=== PATIENT | male | born 1940 | race Hispanic/Latino ===

== ENCOUNTER 2017-08-10 00:08 | Emergency (ER) | payer MEDICARE, MEDICAID ==
[2017-08-10] MEDS ORDERED: Acetaminophen 500 MG TAB ONE (02:32)
--- NOTE | 2017-08-10 07:43 | CT ---
PRELIMINARY REPORT/[facility]/EMERGENCY AFTER HOURS PROCEDURE: EXAM: CT Head Without Intravenous Contrast CLINICAL HISTORY: 77 years old, male; Injury or trauma; Fall; Initial encounter; Abrasion; Not specified; Patient HX: [age] yo m [place] ed from [place] S/P fall. Pt states that he was in his wheelchair, fell backwards, and hit back of head on floor. Denies loc. Pt reports pain to back of head initially but pain has now resolved. Al so reports neck pain. Denies n/v. TECHNIQUE: Axial computed tomography images of the head/brain without intravenous contrast. COMPARISON: No relevant prior studies available. FINDINGS: Brain: There is no evidence of intracranial bleed, mass or shift of midline structures. Diffuse periv entricular, deep and subcortical white matter hypodensity is seen most consistent with small vessel i schemic change. Atherosclerotic calcifications are seen within the intracranial vessels. Ventricles: The ventricles and subarachnoid cisterns demonstrate changes consistent with moderate radha bal cerebral volume loss. Paranasal sinuses: The paranasal sinuses are clear. Mastoids: The mastoid air cells are clear. Osseous structures: The osseous structures are unremarkable. Orbits: The orbits are unremarkable. IMPRESSION: Moderate global cerebral volume loss with diffuse deep, subcortical and periventricular white matter hypodensity most consistent with age related ischemic white matter changes. No evidence of acute intracranial hemorrhage. Thank you for allowing us to participate in the care of your patient. Dictated and Authenticated by: Hilario Aquino MD 08/10/2017 1:31 AM Central Time ([place] & [place]) FINAL REPORT CT BRAIN WITHOUT CONTRAST: I agree with the preliminary report given by Dr. Hilario Aquino of [facility]. Comparison is made with the exam of 12/03/2016. No CT evidence of acute intracranial process is seen . POS: [facility]
--- NOTE | 2017-08-10 08:04 | CT ---
PRELIMINARY REPORT/[facility]/EMERGENCY AFTER HOURS PROCEDURE: EXAM: CT Cervical Spine Without Intravenous Contrast CLINICAL HISTORY: 77 years old, male; Injury or trauma; Fall; Initial encounter; Abrasion; Patient HX: 77 yo m presents [place] ed from [place] S/[place]. Pt states that he was in his wheelchair, fell backwards, and hit back of hea d on floor. Denies loc. Pt reports pain to back of head initially but pain has now resolved. Also rep orts neck pain. Denies n/v. TECHNIQUE: Axial computed tomography images of the cervical spine without intravenous contrast. Coronal and sagittal reformatted images were created and reviewed. COMPARISON: No relevant prior studies available. FINDINGS: Osseous structures: There is no evidence of acute fracture or spondylolisthesis. The cervical alignment is normal. The vertebral body heights are well-maintained. Mild to moderate multilevel degenerative facet change The osseous skull base is normal. Intervertebral discs: Severe C6/C7 degenerative disc change There is no evidence of significant central canal stenosis. Soft tissues: The soft tissues of the neck and paraspinal musculature are unremarkable. Visualized lung apices are unremarkable IMPRESSION: No acute fracture. Severe C6/C7 degenerative disc change with severe RIGHT neural foraminal stenosis Thank you for allowing us to participate in the care of your patient. Dictated and Authenticated by: Hilario Aquino MD 08/10/2017 1:34 AM Central Time ([place] & [place]) FINAL REPORT CT CERVICAL SPINE WITH CORONAL AND SAGITTAL REFORMATIONS: I agree with the preliminary report given by Dr. Hilario Aquino of [facility]. POS: [facility]
== END 2017-08-10 03:10 ==
LOC: ERS 00:08
DX: S09.90XA Unspecified injury of head, initial encounter (principal); S16.1XXA Strain of muscle, fascia and tendon at neck level, initial encounter; E11.9 Type 2 diabetes mellitus without complications; E78.5 Hyperlipidemia, unspecified; F41.9 Anxiety disorder, unspecified; F31.9 Bipolar disorder, unspecified; W05.0XXA Fall from non-moving wheelchair, initial encounter
CPT/HCPCS: 70450; 72125

== ENCOUNTER 2017-09-20 02:46 | Emergency (ER) | payer MEDICARE, MEDICAID ==
[2017-09-20 03:42] LABS: #Basophils 0.1 thou/uL (0.0-0.2); #Eosinphils 0.2 thou/uL (0.0-0.7); #Lymphocytes 1.5 thou/uL (1.20-3.40); #Monocytes 0.4 thou/uL (0.11-0.59); %Eosinophils 4.1 % (0.0-10.0); %Lymphocytes 29.1 % (21.0-51.0); %Monocytes 8.4 % (0.0-10.0); %Neutrophils 57.5 % (42.0-75.0); Hemoglobin 16.9 g/dL (14.0-18.0); Mean Corpuscular HGB CONC 33.1 g/dL (32.0-36.0); Mean Corpuscular Hemoglobin 29.7 pg (27.0-31.0); Mean Corpuscular Volume 89.7 fl (80.0-94.0); Mean Platelet Volume 7.6 fL (7.4-10.4); Platelet Count 138 thou/uL (130-400); RBC Distribution Width 12.7 % (11.5-14.5); Red Blood Cell (RBC) Count 5.69 mill/uL (4.70-6.10); White Blood Cell (WBC) Count 5.3 thou/uL (4.8-10.8)
[2017-09-20 04:01] LABS: Acetaminophen Less than 6.0 mcg/mL (10.0-30.0); Alcohol Less than 10 mg/dL (Less than 10); Salicylate Less than 8.0 mg/dL (15.0-30.0)
[2017-09-20 04:06] LABS: CKMB 0.7 ng/mL (0-6.6); Troponin I Less than 0.010 ng/mL (< 0.028)
[2017-09-20 04:26] LABS: Bilirubin Negative (Negative); Blood, Urine Negative (Negative); Clarity CLEAR (Clear); Glucose, Urine (Dipstick) 250 mg/dL (Negative); Leukocyte Negative (Negative); Nitrite Negative (Negative); Protein, Urine (Dipstick) Negative (Neg-Trace); Specific Gravity, Urine 1.013 (1.002-1.036)
[2017-09-20 04:33] LABS: ALT (SGPT) 11 U/L (8-55); AST (SGOT) 24 U/L (5-34); Albumin 3.9 g/dL (3.4-4.8); Alkaline Phosphatase 54 U/L (40-150); Anion Gap 13 mmol/L (10-20); BUN (Urea Nitrogen) 17 mg/dL (8.4-25.7); Bilirubin, Total 0.5 mg/dL (0.2-1.2); CK (CPK) 41 U/L (30-200); Calc. Creatinine Clearance 0 mL/min (70-130); Calcium 9.6 mg/dL (7.8-10.44); Carbon Dioxide 29 mmol/L (23-31); Chloride 102 mmol/L (98-107); Estimated GFR-MDRD 73; Globulin 3.9 g/dL (2.4-3.5); Glucose 131 mg/dL (83-110); Lipase 12 U/L (8-78); Potassium 4.9 mmol/L (3.5-5.1); Protein, Total 7.8 g/dL (5.8-8.1); Sodium 139 mmol/L (136-145)
[2017-09-20 04:51] LABS: Amphetamine Not Detected (NotDetected); Barbiturates Screen Not Detected (NotDetected); Benzodiazepine Screen Not Detected (NotDetected); Cocaine Metabolite Screen Not Detected (NotDetected); Medtox Control Line Valid? VALID (VALID); Medtox Reader # READER 4; Methadone Not Detected (NotDetected); Methamphetamine Not Detected (NotDetected); Opiate Screen Not Detected (NotDetected); Oxycodone Screen Not Detected (NotDetected); Phencyclidine (PCP) Not Detected (NotDetected); THC/Cannabinoid Screen Not Detected (NotDetected); Tricyclic Screen Not Detected (NotDetected)
--- NOTE | 2017-09-20 07:55 | RAD ---
SINGLE VIEW CHEST: Date: 09/20/17 COMPARISON: 03/20/16. HISTORY: Altered mental status. FINDINGS: Single view of the chest shows normal sized cardiomediastinal silhouette. There is increased opacity in the right lung base which may represent atelectasis and/or an infiltrate. No pleural effusion is s een. Degenerative changes are seen in the spine. IMPRESSION: Right lower lobe atelectasis versus infiltrate. POS: [facility]
--- NOTE | 2017-09-20 07:57 | CT ---
PRELIMINARY REPORT/[facility]/EMERGENCY AFTER HOURS PROCEDURE: EXAM: CT Head Without Intravenous Contrast CLINICAL HISTORY: 77 years old, male; Signs and symptoms; Coma or unconsciousness; Patient HX: 77 yo m presents to ed f rom lampstand [place] for AMS. Family states pt normally awake, alert, and oriented. Last seen normal arou nd midnight. Nh reported that pt now only responsive to pain. Pt has h/o dementia. No h/o stroke. Pt able to walk some but usually in a wheelchair. Pt has h/o mi. TECHNIQUE: Axial computed tomography images of the head/brain without intravenous contrast. All CT scans at this facility use one or more dose reduction techniques, viz.: automated exposure control; ma/kV adjustme nt per patient size (including targeted exams where dose is matched to indication; i.e. head); or ite rative reconstruction technique. COMPARISON: CT Brain WO Con 2017-08-10 01:14 FINDINGS: Brain: Chronic left thalamic and bilateral basal ganglia lacunar infarctions No hemorrhage. Severe wh ite matter disease. No edema. Ventricles: Unremarkable. No ventriculomegaly. Bones/joints: Unremarkable. No acute fracture. Soft tissues: Unremarkable. Sinuses: Minimal polypoid mucosal thickening in the right maxillary sinus No acute sinusitis. Mastoid air cells: Unremarkable as visualized. No mastoid effusion. IMPRESSION: No intracranial hemorrhage.Please see discussion above. Thank you for allowing us to participate in the care of your patient. Dictated and Authenticated by: Conner Kemp MD 09/20/2017 4:28 AM Central Time ([place] & [place]) FINAL REPORT NONCONTRAST HEAD CT: HISTORY: Altered mental status. COMPARISON: 08/10/17. TECHNIQUE: Noncontrast head CT is performed from the skull base to the skull vertex. FINDINGS: This report is in agreement with the preliminary report by [facility]. No acute intracranial process. Age- appropriate atrophy. There are chronic small-vessel ischemic changes of the white matter. Remote la cunar infarcts are noted. POS: [facility]
== END 2017-09-20 05:56 ==
LOC: ERS 02:46
DX: R41.82 Altered mental status, unspecified (principal); E11.9 Type 2 diabetes mellitus without complications; E78.5 Hyperlipidemia, unspecified; I10 Essential (primary) hypertension; F31.9 Bipolar disorder, unspecified; F41.9 Anxiety disorder, unspecified
CPT/HCPCS: 36415; 36416; 51701; 70450; 71045; 80053; 80306; 80307; 81003; 82140; 82553; 83690; 84443; 84484; 85025; 93005; 96360; 96361

== ENCOUNTER 2017-10-03 22:26 | Emergency (ER) | payer MEDICARE, MEDICAID ==
[2017-10-04 00:10] LABS: #Eosinphils 0.2 thou/uL (0.0-0.7); #Lymphocytes 1.9 thou/uL (1.20-3.40); #Monocytes 0.5 thou/uL (0.11-0.59); #Neutrophils 4.1 thou/uL (1.40-6.50); %Basophils 0.6 % (0.0-1.0); %Eosinophils 3.2 % (0.0-10.0); %Lymphocytes 27.7 % (21.0-51.0); %Monocytes 7.5 % (0.0-10.0); Hemoglobin 16.2 g/dL (14.0-18.0); Mean Corpuscular Hemoglobin 29.9 pg (27.0-31.0); Mean Corpuscular Volume 87.9 fl (80.0-94.0); Platelet Count 174 thou/uL (130-400); RBC Distribution Width 12.2 % (11.5-14.5); Red Blood Cell (RBC) Count 5.42 mill/uL (4.70-6.10); White Blood Cell (WBC) Count 6.7 thou/uL (4.8-10.8)
[2017-10-04 00:12] LABS: Bilirubin Negative (Negative); Blood, Urine Negative (Negative); Clarity CLEAR (Clear); Glucose, Urine (Dipstick) 250 mg/dL (Negative); Leukocyte Negative (Negative); Nitrite Negative (Negative); Protein, Urine (Dipstick) Negative (Neg-Trace); Specific Gravity, Urine 1.025 (1.002-1.036)
[2017-10-04 00:27] LABS: ALT (SGPT) 12 U/L (8-55); AST (SGOT) 10 U/L (5-34); Albumin 3.8 g/dL (3.4-4.8); Alkaline Phosphatase 59 U/L (40-150); Anion Gap 12 mmol/L (10-20); BUN (Urea Nitrogen) 27 mg/dL (8.4-25.7); Bilirubin, Total 0.4 mg/dL (0.2-1.2); CK (CPK) 34 U/L (30-200); Calc. Creatinine Clearance 0 mL/min (70-130); Calcium 9.3 mg/dL (7.8-10.44); Carbon Dioxide 28 mmol/L (23-31); Chloride 103 mmol/L (98-107); Estimated GFR-MDRD 60; Globulin 3.5 g/dL (2.4-3.5); Glucose 168 mg/dL (83-110); Potassium 4.1 mmol/L (3.5-5.1); Protein, Total 7.3 g/dL (5.8-8.1); Sodium 139 mmol/L (136-145)
[2017-10-04 00:32] LABS: CKMB 0.6 ng/mL (0-6.6); Troponin I Less than 0.010 ng/mL (< 0.028)
--- NOTE | 2017-10-04 08:27 | CT ---
PRELIMINARY REPORT/[facility]/EMERGENTY AFTER-HOURS PROCEDURE EXAM: CT Head Without Intravenous Contrast EXAM DATE/TIME: 10/04/2017 12:57 AM CLINICAL HISTORY: 77 years old, male; Injury or trauma; Fall; Initial encounter; Concussion / head injury; Patient HX: 77 y/o m with presentation of witnessed fall from wheelchair. Pt reports that he slipped, fell onto h is left side, and states that he is currently painless. However, pt states "i'm worried about my left sidebecause i hit it pretty hard". Denies loc, numbness, tingling, any other complaints. TECHNIQUE: Axial computed tomography images of the head/brain without intravenous contrast. COMPARISON: CT Brain WO Con 2017-09-20 03:45 FINDINGS: Brain: No evidence of acute intracranial hemorrhage, extraxial fluid or midline shift. Mild-moderate prominence of the cerebral sulci and ventricles. Mild low density changes within the white matter bilaterally. Cerebellum atrophic; otherwise, posterior fossa structures within normal limits. Ventricles: See above. Bones/joints: Unremarkable. No acute fracture. Soft tissues: Unremarkable. Sinuses: Unremarkable as visualized. No acute sinusitis. Mastoid air cells: Unremarkable as visualized. No mastoid effusion. IMPRESSION: 1. No evidence of acute intracranial hemorrhage, extraxial fluid or midline shift. 2. Mild-moderate cerebral atrophy. 3. 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 Dictated and Authenticated by: Samir Virgen MD 10/04/2017 1:24 AM Central Time ([place] & [place]) FINAL REPORT NONCONTRAST HEAD CT: Date: 10/04/17 COMPARISON: 09/20/17. HISTORY: Trauma. Fall. FINDINGS/IMPRESSION: This report is in agreement with the preliminary report by [facility]. No acute intracranial process or int racranial post-traumatic sequelae. There are chronic small vessel ischemic changes of the white matte r. Prominence of the ventricular system is in keeping with the overall degree of atrophy. There are c hronic small vessel ischemic changes of the white matter. POS: [facility]
--- NOTE | 2017-11-05 14:43 | EKG ---
Test Reason : Blood Pressure : / mmHG Vent. Rate : 072 BPM Atrial Rate : 072 BPM P-R Int : 144 ms QRS Dur : 126 ms QT Int : 428 ms P-R-T Axes : 040 047 137 degrees QTc Int : 468 ms Poor data quality, interpretation may be adversely affected Normal sinus rhythm Left bundle branch block , old Abnormal ECG Confirmed by LETICIA DELGADO, GERARDO ([id number]), assistant editor FAN QUIROZ ([id number]) on 11/05/2017 2:42:46 PM Referred By: Confirmed By:GERARDO KELLY MD
== END 2017-10-04 02:30 | disposition home or self-care (01) ==
LOC: ERS 22:26
DX: S09.90XA Unspecified injury of head, initial encounter (principal); G30.9 Alzheimer's disease, unspecified; F02.80 Dementia in other diseases classified elsewhere, unspecified severity, without behavioral disturbance, psychotic disturbance, mood disturbance, and anxiety; G20 Parkinson's disease; E11.9 Type 2 diabetes mellitus without complications; E78.5 Hyperlipidemia, unspecified; I10 Essential (primary) hypertension; F41.9 Anxiety disorder, unspecified; F31.9 Bipolar disorder, unspecified; Z79.899 Other long term (current) drug therapy; Z79.84 Long term (current) use of oral hypoglycemic drugs; W05.0XXA Fall from non-moving wheelchair, initial encounter
CPT/HCPCS: 70450; 80053; 81003; 82550; 82553; 84484; 85025; 93005

== ENCOUNTER 2018-07-19 15:39 | Emergency (ER) | payer MEDICARE, MEDICAID ==
--- NOTE | 2018-07-19 16:40 | CT ---
CT HEAD NONCONTRAST: Date: 07/19/18 COMPARISON: 10/04/17. INDICATION: Altered mental status. FINDINGS: There is prominence of the ventricular system, stable to slightly progressed from prior exam. There i s moderate to severe chronic microvascular ischemic disease. Moderate global atrophy is present. Ther e is no acute intracranial hemorrhage or mass effect. The imaged paranasal sinuses reveal no acute fl uid level. IMPRESSION: 1. Moderate global atrophy with prominence of the ventricular system. 2. Moderate to severe white matter hypoattenuation is present bilaterally. 3. There is no acute intracranial hemorrhage or mass effect. POS: [facility]
[2018-07-19 16:52] LABS: #Eosinphils 0.2 thou/uL (0.0-0.7); #Lymphocytes 1.7 thou/uL (1.20-3.40); #Monocytes 0.4 thou/uL (0.11-0.59); #Neutrophils 3.3 thou/uL (1.40-6.50); %Basophils 0.7 % (0.0-1.0); %Eosinophils 2.7 % (0.0-10.0); %Lymphocytes 30.5 % (21.0-51.0); %Monocytes 7.6 % (0.0-10.0); %Neutrophils 58.6 % (42.0-75.0); Hemoglobin 17.2 g/dL (14.0-18.0); Mean Corpuscular HGB CONC 32.8 g/dL (32.0-36.0); Mean Corpuscular Hemoglobin 29.1 pg (27.0-31.0); Mean Corpuscular Volume 88.6 fL (78.0-98.0); Mean Platelet Volume 8.5 fL (7.4-10.4); Platelet Count 139 thou/uL (130-400); RBC Distribution Width 12.7 % (11.5-14.5); Red Blood Cell (RBC) Count 5.93 mill/uL (4.70-6.10); White Blood Cell (WBC) Count 5.7 thou/uL (4.8-10.8)
[2018-07-19 17:13] LABS: ALT (SGPT) 11 U/L (8-55); AST (SGOT) 15 U/L (5-34); Albumin 3.9 g/dL (3.4-4.8); Alkaline Phosphatase 55 U/L (40-150); Anion Gap 14 mmol/L (10-20); BUN (Urea Nitrogen) 19 mg/dL (8.4-25.7); Bilirubin, Total 0.4 mg/dL (0.2-1.2); Calc. Creatinine Clearance 0 mL/min (70-130); Calcium 9.3 mg/dL (7.8-10.44); Carbon Dioxide 25 mmol/L (23-31); Chloride 103 mmol/L (98-107); Estimated GFR-MDRD 60; Globulin 3.6 g/dL (2.4-3.5); Glucose 172 mg/dL (83-110); Potassium 4.1 mmol/L (3.5-5.1); Protein, Total 7.5 g/dL (5.8-8.1); Sodium 138 mmol/L (136-145)
[2018-07-19 18:23] LABS: Bilirubin Negative (Negative); Blood, Urine Negative (Negative); Clarity CLEAR (Clear); Glucose, Urine (Dipstick) 500 mg/dL (Negative); Leukocyte Small (Negative); Nitrite Negative (Negative); Protein, Urine (Dipstick) Negative (Neg-Trace); Specific Gravity, Urine 1.019 (1.002-1.036)
[2018-07-19 18:26] LABS: Hyaline Casts/LPF 0-3 HYALINE CAST LPF (0-3 Hyaline); Pathc Cast-AUWi Flag 0.14 (0-2.49); RBC/HPF 0-3 HPF (0-3); Squamous Epithelial 0-3 HPF (0-3); Yeast-AUWi Flag 96.8 (0-25.0)
[2018-07-19 18:38] LABS: Bacteria/HPF 2+ HPF (None Seen); Yeast-All Forms None Seen HPF (None Seen)
[2018-07-19] MEDS ORDERED: Cephalexin 250 MG CAP ONE (18:53)
--- NOTE | 2018-07-23 10:54 | EKG ---
Test Reason : AMS Blood Pressure : / mmHG Vent. Rate : 070 BPM Atrial Rate : 070 BPM P-R Int : 128 ms QRS Dur : 124 ms QT Int : 428 ms P-R-T Axes : 024 032 152 degrees QTc Int : 462 ms Sinus rhythm with Fusion complexes Left bundle branch block Abnormal ECG No change from 01/03/2018 Confirmed by RAMA APONTE DO ([id number]), city editor LIO DE SANTIAGO ([id number]) on 07/23/2018 10:53:42 AM Referred By: Confirmed By:RAMA APONTE DO
== END 2018-07-19 19:36 | disposition home or self-care (01) ==
LOC: ERS 15:39
DX: N39.0 Urinary tract infection, site not specified (principal); R41.82 Altered mental status, unspecified; F03.90 Unspecified dementia, unspecified severity, without behavioral disturbance, psychotic disturbance, mood disturbance, and anxiety; G30.9 Alzheimer's disease, unspecified; F02.80 Dementia in other diseases classified elsewhere, unspecified severity, without behavioral disturbance, psychotic disturbance, mood disturbance, and anxiety; G20 Parkinson's disease; E11.9 Type 2 diabetes mellitus without complications; E78.5 Hyperlipidemia, unspecified; I10 Essential (primary) hypertension; F41.9 Anxiety disorder, unspecified; F31.9 Bipolar disorder, unspecified; Z79.899 Other long term (current) drug therapy; Z79.84 Long term (current) use of oral hypoglycemic drugs
CPT/HCPCS: 36415; 51701; 70450; 80053; 81003; 81015; 84484; 85025; 93005

== ENCOUNTER 2018-09-09 15:03 | Emergency (ER) | payer MEDICARE, MEDICAID ==
[2018-09-09 16:32] LABS: #Eosinphils 0.1 thou/uL (0.0-0.7); #Lymphocytes 1.2 thou/uL (1.20-3.40); #Monocytes 0.4 thou/uL (0.11-0.59); #Neutrophils 4.2 thou/uL (1.40-6.50); %Basophils 0.2 % (0.0-1.0); %Eosinophils 2.2 % (0.0-10.0); %Lymphocytes 19.8 % (21.0-51.0); %Monocytes 6.8 % (0.0-10.0); Hemoglobin 16.7 g/dL (14.0-18.0); Mean Corpuscular HGB CONC 32.3 g/dL (32.0-36.0); Mean Corpuscular Hemoglobin 28.5 pg (27.0-31.0); Mean Corpuscular Volume 88.2 fL (78.0-98.0); Mean Platelet Volume 8.5 fL (7.4-10.4); Platelet Count 126 thou/uL (130-400); RBC Distribution Width 12.2 % (11.5-14.5); Red Blood Cell (RBC) Count 5.85 mill/uL (4.70-6.10)
[2018-09-09 16:53] LABS: ALT (SGPT) 18 U/L (8-55); AST (SGOT) 15 U/L (5-34); Albumin 3.7 g/dL (3.4-4.8); Alkaline Phosphatase 53 U/L (40-150); Anion Gap 15 mmol/L (10-20); BUN (Urea Nitrogen) 14 mg/dL (8.4-25.7); Bilirubin, Total 0.5 mg/dL (0.2-1.2); Calc. Creatinine Clearance 0 mL/min (70-130); Calcium 9.2 mg/dL (7.8-10.44); Carbon Dioxide 25 mmol/L (23-31); Chloride 102 mmol/L (98-107); Estimated GFR-MDRD 70; Globulin 3.1 g/dL (2.4-3.5); Glucose 150 mg/dL (83-110); Magnesium 1.7 mg/dL (1.6-2.6); Potassium 4.1 mmol/L (3.5-5.1); Protein, Total 6.8 g/dL (5.8-8.1); Sodium 138 mmol/L (136-145); Valproic Acid (Depakene) 18.3 ug/mL (50.0-100.0)
[2018-09-09 17:41] LABS: Bilirubin Small (Negative); Blood, Urine Negative (Negative); Clarity CLEAR (Clear); Glucose, Urine (Dipstick) 100 mg/dL (Negative); Leukocyte Negative (Negative); Nitrite Negative (Negative); Protein, Urine (Dipstick) Trace mg/dL (Neg-Trace); Specific Gravity, Urine 1.028 (1.002-1.036); pH, Urine 5.5 (5.0-9.0)
--- NOTE | 2018-09-09 19:32 | CT ---
CT OF BRAIN WITHOUT CONTRAST 09/09/18 INDICATION: 78-year-old male with history of seizure-like activity. COMPARISON: Prior exam dated 07/19/18. FINDINGS: There is prominent generalized cerebral and cerebellar atrophy. There is prominent chronic small vess el white matter ischemic change. There is a remote lacunar infarct involving the left thalamus which is stable. No definite acute infarct, hemorrhage, or hydrocephalus is present. Septum pellucidum and third ventr icle are midline. Mastoid air cells are clear. The visualized paranasal sinuses are clear. Skull is i ntact. IMPRESSION: No acute intracranial abnormality. Chronic ischemic changes. POS: [place]
== END 2018-09-09 19:19 | disposition home or self-care (01) ==
LOC: ERS 15:03
DX: R56.9 Unspecified convulsions (principal); F03.90 Unspecified dementia, unspecified severity, without behavioral disturbance, psychotic disturbance, mood disturbance, and anxiety; G30.9 Alzheimer's disease, unspecified; F02.80 Dementia in other diseases classified elsewhere, unspecified severity, without behavioral disturbance, psychotic disturbance, mood disturbance, and anxiety; G20 Parkinson's disease; E11.9 Type 2 diabetes mellitus without complications; E78.5 Hyperlipidemia, unspecified; I10 Essential (primary) hypertension; F41.9 Anxiety disorder, unspecified; F31.9 Bipolar disorder, unspecified; Z79.899 Other long term (current) drug therapy; Z79.84 Long term (current) use of oral hypoglycemic drugs
CPT/HCPCS: 36415; 51701; 70450; 80053; 80164; 81003; 83735; 85025; 93005; 94760

== ENCOUNTER 2018-09-20 14:38 | Observation (INO) | payer MEDICARE, MEDICAID ==
[2018-09-20 15:29] LABS: #Eosinphils 0.2 thou/uL (0.0-0.7); #Lymphocytes 1.3 thou/uL (1.20-3.40); #Monocytes 0.4 thou/uL (0.11-0.59); #Neutrophils 3.8 thou/uL (1.40-6.50); %Basophils 0.5 % (0.0-1.0); %Eosinophils 2.8 % (0.0-10.0); %Lymphocytes 23.2 % (21.0-51.0); %Monocytes 6.5 % (0.0-10.0); %Neutrophils 67.1 % (42.0-75.0); Hemoglobin 17.8 g/dL (14.0-18.0); Mean Corpuscular HGB CONC 32.4 g/dL (32.0-36.0); Mean Corpuscular Hemoglobin 29.4 pg (27.0-31.0); Mean Corpuscular Volume 90.7 fL (78.0-98.0); Mean Platelet Volume 8.5 fL (7.4-10.4); Platelet Count 127 thou/uL (130-400); RBC Distribution Width 12.7 % (11.5-14.5); Red Blood Cell (RBC) Count 6.06 mill/uL (4.70-6.10); White Blood Cell (WBC) Count 5.7 thou/uL (4.8-10.8)
[2018-09-20 15:47] LABS: ALT (SGPT) 16 U/L (8-55); AST (SGOT) 14 U/L (5-34); Albumin 3.9 g/dL (3.4-4.8); Alkaline Phosphatase 60 U/L (40-150); Anion Gap 16 mmol/L (10-20); BUN (Urea Nitrogen) 20 mg/dL (8.4-25.7); Bilirubin, Total 0.6 mg/dL (0.2-1.2); Calc. Creatinine Clearance 0 mL/min (70-130); Calcium 9.5 mg/dL (7.8-10.44); Carbon Dioxide 25 mmol/L (23-31); Chloride 102 mmol/L (98-107); Estimated GFR-MDRD 57; Globulin 3.3 g/dL (2.4-3.5); Glucose 142 mg/dL (83-110); Potassium 4.1 mmol/L (3.5-5.1); Protein, Total 7.2 g/dL (5.8-8.1); Sodium 139 mmol/L (136-145)
--- NOTE | 2018-09-20 16:13 | CT ---
CT BRAIN WITHOUT CONTRAST: HISTORY: Seizure, incontinence. FINDINGS: Comparison is made with the exam of 09/09/2018. Changes of cortical atrophy and chronic small-vessel ischemic disease are again seen. Old lacunar in farction in the left thalamus is stable. Ventricular size is stable and the basilar cisterns are pat ent. No evidence of acute infarct, hemorrhage, midline shift, or abnormal extraaxial fluid collections are seen. The bony calvarium is intact. The visualized paranasal sinuses and mastoid air cells are wel l aerated. IMPRESSION: Stable exam. No CT evidence of acute intracranial process. POS: [facility]
[2018-09-20] MEDS ORDERED: Valproic Acid 250 MG CAP PO SCH (18:15)
[2018-09-20 19:00] LABS: Troponin I Less than 0.010 ng/mL (< 0.028)
[2018-09-20 21:34] LABS: Troponin I Less than 0.010 ng/mL (< 0.028)
[2018-09-20] MEDS ORDERED: Acetaminophen 325 MG TAB PO PRN (21:37)
[2018-09-20] MEDS ORDERED: Ondansetron PF 4 MG/2 ML Vial IVP PRN (21:37)
[2018-09-20] MEDS ORDERED: Ondansetron ODT 4 MG TAB SL PRN (21:37)
[2018-09-20 22:36] VITALS: BMI 27.8
[2018-09-21] MEDS ORDERED: Ondansetron PF 4 MG/2 ML Vial IVP PRN (08:42)
[2018-09-21] MEDS ORDERED: hydrALAZINE 20 MG/ML VIAL SLOW IVP PRN (08:42)
[2018-09-21] MEDS ORDERED: Bisacodyl 5 MG TAB PO PRN ×2 (08:42)
[2018-09-21] MEDS ORDERED: Diabetic Tussin 200 MG/10 ML UDCUP PO PRN (08:42)
[2018-09-21] MEDS ORDERED: cloNIDine 0.1 MG TAB PO PRN (08:42)
[2018-09-21] MEDS ORDERED: Acetaminophen 325 MG TAB PO PRN (08:42)
[2018-09-21] MEDS ORDERED: Nitroglycerin 0.4 MG TAB (25 Tab Bottle) SL PRN (08:42)
[2018-09-21] MEDS ORDERED: Senokot S 8.6-50 MG TAB PO PRN ×2 (08:42)
[2018-09-21] MEDS ORDERED: Dextrose 5% in Water 1,000 ML IV PRN (08:42)
[2018-09-21] MEDS ORDERED: Dextrose 50% Abboject 50 ML SYRINGE SLOW IVP PRN (08:42)
[2018-09-21] MEDS ORDERED: Insulin Regular 300 UNITS/3 ML VIAL SC PRN (08:42)
[2018-09-21] MEDS ORDERED: HumaLOG 300 UNITS/3 ML VIAL SC PRN (08:42)
[2018-09-21] MEDS ORDERED: Benzonatate 100 MG CAP PO PRN (08:42)
[2018-09-21] MEDS ORDERED: Glimepiride 1 MG TAB PO SCH (09:00)
[2018-09-21] MEDS ORDERED: PARoxetine 20 MG TAB PO SCH (09:00)
[2018-09-21] MEDS ORDERED: Donepezil HCl 10 MG TAB PO SCH (09:00)
[2018-09-21] MEDS ORDERED: Lisinopril 5 MG TAB PO SCH (09:00)
[2018-09-21] MEDS ORDERED: Divalproex Sodium 125 mg Sprinkle Capsule PO SCH ×3 (09:00→21:00)
[2018-09-21] MEDS ORDERED: PAROXETINE HCL PO SCH (09:00)
[2018-09-21] MEDS: Sodium Chloride 0.9% 1,000 ML IV SCH (09:48)
[2018-09-21] MEDS: Tamsulosin HCl 0.4 MG CAP PO SCH (09:54)
[2018-09-21] MEDS: Lisinopril 10 MG TAB PO SCH (09:55)
[2018-09-21] MEDS: Famotidine 20 MG TAB PO SCH ×2 (09:55→20:54)
[2018-09-21] MEDS: Enoxaparin Sodium 40 MG/0.4 ML SYRINGE SC SCH (09:55)
[2018-09-21] MEDS ORDERED: Valproate Sodium 1,000 MG in Sodium Chloride 0.9% 100 ML IVPB SCH (12:45)
[2018-09-21 16:14] LABS: Bilirubin Small (Negative); Blood, Urine Small (Negative); Clarity CLEAR (Clear); Glucose, Urine (Dipstick) 250 mg/dL (Negative); Leukocyte Negative (Negative); Nitrite Negative (Negative); Protein, Urine (Dipstick) Negative (Neg-Trace); Specific Gravity, Urine 1.025 (1.002-1.036)
[2018-09-21 16:15] LABS: Bacteria/HPF None Seen HPF (None Seen); Hyaline Casts/LPF 4-6 HYALINE CAST LPF (0-3 Hyaline); Pathc Cast-AUWi Flag 0.67 (0-2.49); Squamous Epithelial 0-3 HPF (0-3); WBC/HPF 0-3 HPF (0-3)
[2018-09-21 16:18] LABS: Renal Epithelial None Seen HPF (0-3); Transitional Epithelial NONE SEEN HPF (0-3); Urine Culture Reflex No No
[2018-09-21] MEDS ORDERED: Doxazosin 2 MG TAB PO SCH (21:00)
[2018-09-22] MEDS: Sodium Chloride 0.9% 1,000 ML IV SCH
--- NOTE | 2018-09-22 00:28 | CON ---
DATE OF CONSULTATION: 09/21/2018 CONSULTING PHYSICIAN: Dr. Robertson. CONSULTED PHYSICIAN: Dr. Porter. REASON FOR CONSULTATION: Bloody discharge from the penis. HISTORY OF PRESENT ILLNESS: Mr. Gerardo is a 78-year-old male, who is admitted to the hospital for seizure disorder. Upon admission, it was noted that he had what looked like bloody urine or bloody discharge at the tip of the penis. The patient does have significant comorbidities including significant dementia and history of seizure disorders, for which he is currently on medication. He is generally incontinent and manages his incontinence with pull-up briefs. There is no previous reported history of hematuria, and the patient is unable to provide any history himself. There is no family at the bedside. Most of the history is obtained from the nurse, who is taking care of him. The nurse states that the hematuria seems to have stopped now, and the patient is no longer having any bloody discharge. The patient is able to answer simple questions, but cannot provide any adequate history. On questioning, he states that he is not having any difficulty with urination or burning with urination. Beyond this, he does not give any appropriate answers. ALLERGIES: NONE. HOME MEDICATIONS: 1. Flomax. 2. Cardura. 3. Vitamin D. 4. Paroxetine. 5. Depakote. 6. Glimepiride. 7. Donepezil. 8. Memantine. 9. Metformin. 10. Lisinopril. PAST MEDICAL HISTORY: 1. Dementia. 2. Dyspepsia. 3. Prostate cancer. 4. Alzheimer disease. 5. Parkinson disease. 6. Type 2 diabetes. 7. Hyperlipidemia. 8. High cholesterol. 9. Hypertension. 10. Cerebral infarction. 11. Anxiety. 12. Bipolar disorder with delusions. 13. Depression. 14. Seizure disorder. PAST SURGICAL HISTORY: 1. First right digit amputation. 2. Back surgery. 3. Left knee surgery. FAMILY HISTORY: Significant for father with stomach cancer. SOCIAL HISTORY: The patient has no reported use of tobacco, alcohol, or drug use. REVIEW OF SYSTEMS: Cannot be obtained as the patient has significant cognitive deficits and will not answer questions appropriately. PHYSICAL EXAMINATION: VITAL SIGNS: Temperature 98.3, pulse 72, respirations 20, blood pressure 114/72, and saturation 95% on room air. GENERAL: No apparent distress. Resting comfortably. Does not answer questions appropriately. Oriented x1. HEENT: Normocephalic, atraumatic. Sclerae nonicteric. Pupils are symmetric and round. CARDIOVASCULAR: Regular rate and rhythm. Normal S1 and S2. CHEST: No increased work of breathing. Symmetric expansion. LUNGS: Clear anteriorly. ABDOMEN: Soft, nontender, and nondistended. Positive bowel sounds. No suprapubic tenderness. : The patient is circumcised with normal glans. There is currently nonbloody urine at the tip of the penis. The patient is wearing a diaper and is incompletely incontinent. Testes are bilaterally descended. No significant penoscrotal edema. RECTAL: Deferred at this time. EXTREMITIES: No clubbing or cyanosis. 1+ edema. NEUROLOGIC: Cranial nerves 2 through 12 grossly intact. No focal or sensory deficits identified. MUSCULOSKELETAL: The patient has adequate range of motion and moves all extremities equally, although he does not follow commands well. SKIN: Warm, dry, poor turgor. No rashes or lesions. PSYCHIATRIC: Oriented x1, but alert, does not answer questions appropriately. Apparently, mood appears stable at the moment. LABORATORY DATA: On laboratory evaluation, the full set of labs are in the [employer] system, which I have reviewed. Of note, the patient's white count is 5.7, hemoglobin is 17.8, and platelet count of 127. Creatinine is 1.23. Urinalysis demonstrates 4 to 6 red blood cells, small bilirubin, trace ketones, small blood, and 250 of glucose. ASSESSMENT AND PLAN: A 78-year-old male with likely episode of gross hematuria with incontinence. His incontinence is likely secondary to his cognitive status and probably will never improve. As far as his hematuria, this probably would be best served up with a complete hematuria workup, which would best be done as an outpatient. Cystoscopy at bedside. Generally has poor optics with poor light sources and often times will miss important findings. I would recommend as there is no emergency in his current situation that once he is discharged from the hospital, he can always follow up with me as an outpatient and we can perform his hematuria workup at that time. For now, I will allow his primary doctors to work on his seizure disorder and continue his medical management and he can follow up with me as an outpatient. Job ID: [id number]
[2018-09-22 05:56] LABS: #Eosinphils 0.2 thou/uL (0.0-0.7); #Monocytes 0.4 thou/uL (0.11-0.59); #Neutrophils 2.2 thou/uL (1.40-6.50); %Eosinophils 4.9 % (0.0-10.0); %Lymphocytes 40.8 % (21.0-51.0); %Monocytes 8.3 % (0.0-10.0); Hemoglobin 14.9 g/dL (14.0-18.0); Mean Corpuscular HGB CONC 32.6 g/dL (32.0-36.0); Mean Corpuscular Hemoglobin 29.2 pg (27.0-31.0); Mean Corpuscular Volume 89.8 fL (78.0-98.0); Mean Platelet Volume 10.6 fL (7.4-10.4); Platelet Count 127 thou/uL (130-400); RBC Distribution Width 12.8 % (11.5-14.5); White Blood Cell (WBC) Count 4.8 thou/uL (4.8-10.8)
[2018-09-22 06:14] LABS: Anion Gap 13 mmol/L (10-20); BUN (Urea Nitrogen) 14 mg/dL (8.4-25.7); Calc. Creatinine Clearance 72 mL/min (70-130); Calcium 8.4 mg/dL (7.8-10.44); Carbon Dioxide 23 mmol/L (23-31); Chloride 107 mmol/L (98-107); Estimated GFR-MDRD 73; Glucose 96 mg/dL (83-110); Potassium 4.2 mmol/L (3.5-5.1); Sodium 139 mmol/L (136-145)
--- NOTE | 2018-09-22 08:19 | HP ---
PRIMARY CARE PHYSICIAN: Tenisha Vinson MD CHIEF COMPLAINT: Seizures. HISTORY OF PRESENTING ILLNESS: Mr. Gerardo is a 78-year-old male with past medical history of Parkinson disease, Alzheimer's dementia, diabetes mellitus, hypertension, dyslipidemia, and history of left-sided CVA, who presented to the emergency room with the above-mentioned complaint. History is mainly obtained by the record review. The patient has advanced dementia and is not able to provide any coherent history. Mr. Gerardo is a resident of [facility]. He was sent over there for some sort of seizure-like activity. The details are sketchy. It is not sure if it was a tonic clonic or focal seizure. He is on Depakote. His baseline is unknown. In the emergency room, he was found to be awake, alert, oriented x2, and hemodynamically stable with a blood pressure 105/67, pulse of 86. He underwent a 12-lead EKG, which showed old left bundle branch block and a CT scan of the head which showed no acute changes. He was given 500 mg of valproic acid. He was found to have low valproic acid levels in the emergency room. He was also found to have some blood in his diaper. He is now being admitted for further workup for both of his seizures and possible hematuria. Urinalysis could not be obtained because of the blood in the diaper. PAST MEDICAL HISTORY: 1. History of left thalamic CVA. 2. Diabetes mellitus type 2. 3. Dyslipidemia. 4. Anxiety. 5. Hypertension. 6. Urinary incontinence. 7. Dementia. PAST SURGICAL HISTORY: 1. Right first digit amputation. 2. Back surgery. 3. Knee surgery. ALLERGIES: NO KNOWN ALLERGIES. HOME MEDICATIONS: As listed [facility] the [facility] and reconciled today. 1. Tamsulosin 0.4 mg daily. 2. Cardura 4 mg daily. 3. Cholecalciferol 1 tablet daily. 4. Paroxetine 30 mg daily. 5. Memantine 10 mg p.o. b.i.d. 6. Lisinopril 10 mg daily. 7. Glimepiride 1 mg daily. 8. Donepezil 10 mg daily. 9. Depakote 125 mg three capsules b.i.d. 10. Metformin 500 mg p.o. b.i.d. FAMILY HISTORY: According to the review of the records, father had stomach cancer. REVIEW OF SYSTEMS: Cannot be reliably obtained from the patient due current cognitive status.Pt is confused and does not answer any questions correctly. CODE STATUS: According to the old records, full code. I have requested his records from [place] to discuss code status with his family. No family is at bedside at this time and the patient has advanced dementia to discuss the code status. LABORATORY DATA: His CBC is unremarkable and within normal limits. Serum chemistries within normal limits. Blood sugar 142. Serial cardiac enzyme troponin less than 0.[address] scan of the brain by my review has no evidence to suggest acute infarction, hemorrhage or mass effect. A 12-lead EKG by my review shows old left bundle branch block without any acute changes. PHYSICAL EXAMINATION: VITAL SIGNS: Most recent blood pressure 129/80, saturating 96% on room air, temperature 98.0, heart rate 75. GENERAL: No acute distress. Awake, alert, oriented to self. He thinks he is 60 years old and lives with his parents at home. Answers simple questions, but not correctly. He is able to follow simple commands. HEENT: Mucous membrane moist and pink. No oropharyngeal exudate or erythema. Head is normocephalic, atraumatic. Pupils are equal and reactive to light and accommodation. Extraocular movement intact. NECK: Supple without any lymphadenopathy, JVD, or bruit. CHEST: Clear to auscultation without any wheezing, rales, or rhonchi. HEART: Rate and rhythm are regular without any murmurs, rubs, or gallops. ABDOMEN: Soft, nontender, nondistended. Positive bowel sounds. EXTREMITIES: Free of any cyanosis, clubbing, or edema. NEUROLOGICAL: Examination is nonfocal. SKIN: Free of any rashes or bruises. Feels warm and dry to touch. PSYCHIATRIC: Normal affect. IMPRESSION AND PLAN: 1. Seizures. The patient is on Depakote, suggesting that he might have some history of seizure disorder. We will restart that and consult Neurology for further recommendation and order an EEG. Otherwise, he is hemodynamically stable. 2. Hematuria. We will request consultation from Urology. The patient has no history of recent instrumentation. I could not find any recent urine culture on him as well. He had a CT scan of chest, abdomen, and pelvis in 2017, but nothing recent. He was found to have bilateral renal cyst at that time. 3. Alzheimer's dementia. We will restart his home medication of donepezil and memantine. 4. History of hypertension, currently controlled. Restart his lisinopril and add p.r.n. antihypertensives. 5. Diabetes mellitus. We will hold his metformin to avoid metabolic acidosis or renal failure and start him on insulin sliding scale with frequent Accu-Chek a.c. and at bedtime. 6. Deep venous thrombosis and gastrointestinal prophylaxis. DISPOSITION: Mr. Gerardo is being admitted to the hospital for breakthrough seizures with low levels of valproic acid. EEG and resumption of home medication. Neurology consult as above. Further management will depend upon his clinical course. Currently on observation status. Job ID: [id number] [facility]
[2018-09-22] MEDS: Lisinopril 10 MG TAB PO SCH (08:47)
[2018-09-22] MEDS: Tamsulosin HCl 0.4 MG CAP PO SCH (08:49)
[2018-09-22] MEDS: Famotidine 20 MG TAB PO SCH (08:49)
[2018-09-22] MEDS: Enoxaparin Sodium 40 MG/0.4 ML SYRINGE SC SCH (08:50)
[2018-09-22] MEDS ORDERED: PARoxetine 20 MG TAB PO SCH (09:00)
[2018-09-22] MEDS ORDERED: Glimepiride 1 MG TAB PO SCH (09:00)
[2018-09-22] MEDS ORDERED: Donepezil HCl 10 MG TAB PO SCH (09:00)
--- NOTE | 2018-09-22 09:04 | EEG ---
Referring Physician: MARCIN EEG # [id number] TEST TYPE: ROUTINE PORTABLE INPATIENT REPORT: AN EEG USING THE INTERNATIONAL TEN-TWENTY SYSTEM OF ELECTRODE PLACEMENT WAS PERFORMED. The best waking background is an 8 hertz alpha frequency. The patient became drowsy, but no sleep was seen. Photic stimulation was unremarkable. No epileptiform features were present. IMPRESSION: NORMAL AWAKE AND DROWSY EEG. Break Off Worker: NEERAJ Paint Technician: EEG.KEATON PHILLIPS
[2018-09-22 11:28] VITALS: BP 117/75; TEMP 97.8
--- NOTE | 2018-09-23 01:53 | DIS ---
DATE OF ADMISSION: 09/20/2018 DATE OF DISCHARGE: 09/22/2018 CONDITION: At the time of discharge, stable and improved. DISCHARGE DISPOSITION: Back to [facility]. DISCHARGE DIAGNOSIS: Breakthrough seizures, resolved. SECONDARY DISCHARGE DIAGNOSIS: As per the HPI dictated by myself on 09/21/2018. DISCHARGE MEDICATIONS: Remain the same as admission medication except that the Depakote dose has been increased from 375 mg p.o. b.i.d. to 500 mg p.o. b.i.d. Rest as follows: 1. Aricept 10 mg daily. 2. Doxazosin 4 mg daily. 3. Glimepiride 1 mg daily. 4. Lisinopril 10 mg daily. 5. Namenda 10 mg p.o. b.i.d. 6. Paxil 20 mg daily. 7. Flomax 0.4 mg daily. PRIMARY CARE PHYSICIAN: Tenisha Vinson MD. IN-HOUSE CONSULTATION: 1. Neurology, Dr. Darius Pate. 2. Urology, Dr. Porter. PROCEDURES DONE IN THE HOSPITAL: 1. CT scan of the brain which is stable without any evidence of acute intracranial process. 2. EEG, which is unremarkable. HISTORY OF PRESENTING ILLNESS: Mr. Gerardo is a 78-year-old male with past medical history of Parkinson disease, Alzheimer dementia, diabetes, hypertension, dyslipidemia, and CVA with possible history of seizure disorder as well as advanced dementia, who presented to the emergency room with complaints of possible seizures. Not much details were available, but according to the ER record, it seems like he had a seizure-like activity at the [facility] prompting his ER visit. In the emergency room, he was stable, but was found to have low levels of valproic acid. It was noticed that he takes Depakote in the [facility]. Neurology was consulted. CT scan of the brain was negative. HOSPITAL COURSE: The patient had some blood in his briefs for which Urology was consulted; but by the time Dr. Porter saw the patient, the bleeding had stopped and he was having clear urine from the penis. Dr. Porter would like to see him in the outpatient setting for possible cystoscopy and outpatient referral will be provided. With regard to his seizures, Dr. Pate from Neurology saw the patient and increased his Depakote to 500 p.o. b.i.d. and gave him a loading dose of valproic acid x1. As of this morning, he is back to his baseline and he is seizure and symptom free and will be discharged back to [facility]. His urinalysis did not have any evidence to suggest infection. His labs were unremarkable and vital signs stable. He was seen and examined prior to discharge. PHYSICAL EXAMINATION: VITAL SIGNS: This morning, heart rate 68, blood pressure 131/88. Vital signs are stable. GENERAL: He is awake, alert, and oriented to self due to severe dementia, but otherwise no acute distress. CHEST: Clear to auscultation. No wheezing on examination. NEUROLOGICAL: Nonfocal. Job ID: [id number]
--- NOTE | 2018-09-23 16:38 | EKG ---
Test Reason : STAT Blood Pressure : / mmHG Vent. Rate : 070 BPM Atrial Rate : 070 BPM P-R Int : 146 ms QRS Dur : 124 ms QT Int : 442 ms P-R-T Axes : 045 042 109 degrees QTc Int : 477 ms Sinus rhythm with Fusion complexes Left bundle branch block Abnormal ECG When compared with ECG of 20-SEP-2018 15:09, (Unconfirmed) Fusion complexes are now Present Confirmed by DR. Rafal NASH ([id number]) on 09/23/2018 4:38:15 PM Referred By: Confirmed By:DR. Rafal NASH
--- NOTE | 2018-09-24 17:49 | EKG ---
Test Reason : Blood Pressure : / mmHG Vent. Rate : 079 BPM Atrial Rate : 079 BPM P-R Int : 136 ms QRS Dur : 124 ms QT Int : 422 ms P-R-T Axes : 053 049 146 degrees QTc Int : 483 ms Normal sinus rhythm Left bundle branch block Abnormal ECG When compared with ECG of 09-SEP-2018 Left bundle branch block was seen Otherwise no acute changes Confirmed by ANDRE BURCH ([id number]), video effects editor FAN QUIROZ ([id number] on 09/24/2018 5:49:17 PM Referred By: Confirmed By:ANDRE BURCH
== END 2018-09-22 15:20 ==
LOC: ERS 14:38 → 2SE 18:10
PROVIDERS: ADMIT Family Medicine; ATTEND Family Medicine
DX: G40.909 Epilepsy, unspecified, not intractable, without status epilepticus (principal); I10 Essential (primary) hypertension; I44.7 Left bundle-branch block, unspecified; E11.9 Type 2 diabetes mellitus without complications; E78.00 Pure hypercholesterolemia, unspecified; G30.9 Alzheimer's disease, unspecified; F02.80 Dementia in other diseases classified elsewhere, unspecified severity, without behavioral disturbance, psychotic disturbance, mood disturbance, and anxiety; F41.9 Anxiety disorder, unspecified; F31.9 Bipolar disorder, unspecified; Z86.73 Personal history of transient ischemic attack (TIA), and cerebral infarction without residual deficits; Z85.46 Personal history of malignant neoplasm of prostate; Z79.84 Long term (current) use of oral hypoglycemic drugs; Z79.899 Other long term (current) drug therapy; Z98.890 Other specified postprocedural states
CPT/HCPCS: 70450; 80048; 80053; 80164 ×2; 81001; 82962 ×2; 84146; 84484 ×2; 85025 ×2; 93005 ×2; 95816; 95819; 96361 ×2; 96365; 96372 ×2; 97139 ×3; 97530; 99285; G0378 ×2; 36415; 36416; 93010; J1650; J7050

== ENCOUNTER 2019-06-19 15:50 | Emergency (ER) | payer MEDICARE, MEDICAID ==
--- NOTE | 2019-06-19 16:45 | RAD ---
Right shoulder 3 views HISTORY: Right shoulder pain. FINDINGS: Acromioclavicular and glenohumeral alignment are maintained. Mild osteophytosis. Mild joint space narrowing at the glenohumeral joint. Osseous structures are diffusely demineralized. No acute fracture, dislocation, or aggressive osseous erosions. IMPRESSION: Mild osteoarthritic changes right shoulder.
== END 2019-06-19 20:00 ==
LOC: ERS 15:50
DX: M25.511 Pain in right shoulder (principal); G30.9 Alzheimer's disease, unspecified; E11.9 Type 2 diabetes mellitus without complications; I10 Essential (primary) hypertension; F32.9 Major depressive disorder, single episode, unspecified; G20 Parkinson's disease; E78.5 Hyperlipidemia, unspecified; E78.00 Pure hypercholesterolemia, unspecified; F41.9 Anxiety disorder, unspecified